=== PATIENT | female | born 1950 | race Caucasian/White ===

== ENCOUNTER 2016-09-17 18:41 | Emergency (ER) | payer MEDICARE, OTHER ==
[~2016-09-17 18:41] MED LIST: ASCO500C PO; CENTTAB16 PO; CYCL-36 PO; IBUP800T23 PO
[2016-09-17 18:49] VITALS: BP 143/67; PULSE 92; RESP 20; TEMP 98.5; O2SAT 97
[2016-09-17] MEDS ORDERED: TETANUS/DIPHTHERIA TOXOID ADULT 0.5 ML VIAL IM ONE (19:15)
[2016-09-17] MEDS ORDERED: LIDOCAINE HCL 1% PF 30 ML VIAL INFIL ONE (19:15)
--- NOTE | 2016-09-17 19:23 | PD ---
HPI Chief Complaint: Laceration/Skin Injury Time Seen by Provider: 19:10 Travel History International Travel<30 days: No Contact w/Intl Traveler<30days: No Traveled to known affect area: No History of Present Illness HPI 66-year-old female presents to the emergency room for evaluation of a laceration to the left thumb that occurred just prior to arrival. Patient accidentally cut herself with a recently sharpened knife in the fur cleaner. She states she could not get the bleeding to stop with a regular band-aid. She is also concerned about developing infection. Patient denies paresthesias or loss of range of motion. She is not on blood thinners. Unknown last tetanus. No history of diabetes. PFSH Past Medical History Diminished Hearing: No Reproductive: Yes (FIBROID TUMOR, BILATERAL BREAST BIOPSIES: NEGATIVE) Immunizations Current: Yes : 6 Para: 4 Miscarriage: 2 Past Surgical History Other Surgery: Yes (GROWTH REMOVED OFF NECK) Family History Family Hypercholesterolemia: Yes (FATHER) Social History Alcohol Use: Yes (RARELY) Tobacco Use: No (QUIT AGE 34) Substance Use: No Allergies-Medications (Allergen,Severity, Reaction): Coded Allergies: No Known Allergies (Unverified , 09/17/16) Reported Meds & Prescriptions Reported Meds & Active Scripts Active No Active Prescriptions or Reported Medications Review of Systems Except as stated in HPI: all other systems reviewed are Neg Physical Exam Narrative GENERAL: Well-nourished, well-developed female in no acute distress. Afebrile. Ambulatory. SKIN: Focused skin assessment warm/dry. There is a 2.5 cm well approximated laceration to the left proximal thumb on the dorsal side. Nonbleeding. HEAD: Normocephalic. EYES: No scleral icterus. No injection or drainage. NECK: Supple, trachea midline. No JVD or lymphadenopathy. CARDIOVASCULAR: Regular rate and rhythm without murmurs, gallops, or rubs. RESPIRATORY: Breath sounds equal bilaterally. No accessory muscle use. MUSCULOSKELETAL: No cyanosis, or edema. Full range of motion of the hand. Less than 2 second capillary refill distally. Data Data Last Documented VS Vital Signs Date Time Temp Pulse Resp B/P Pulse Ox O2 Delivery O2 Flow Rate FiO2 09/17/16 18:49 98.5 92 20 143/67 97 Orders Tetanus/Diphtheria Tox Adult (Tetanus/Di (09/17/16 19:15) Lidocaine Pf 1% Inj (Xylocaine-Mpf 1% In (09/17/16 19:15) MDM Medical Decision Making Medical Screen Exam Complete: Yes Emergency Medical Condition: Yes Medical Record Reviewed: Yes Differential Diagnosis Laceration, abrasion, contusion Narrative Course 66-year-old female presents to the emergency room for evaluation of a laceration to the left, dorsal thumb that occurred just prior to arrival. She accidentally cut herself on a sharpened steak knife. Left thumb is neurovascularly intact with less than 2 second capillary refill distally. Full range of motion. There is a 2 cm superficial laceration to the left thumb. Tetanus was updated. Laceration was thoroughly irrigated and then repaired, see procedure for details. Patient discharged with wound care instructions and told to follow up with a primary care physician or return for worsening symptoms. He is to plan. Procedures Procedure Narrative LACERATION LOCATION: Left dorsal, proximal thumb LENGTH: 2 cm NUMBER OF STITCHES/FLOYD: 5 simple interrupted REPAIR: The area of the laceration was prepped with Betadine and sterilely draped. The laceration was infiltrated with 1% lidocaine. The wound was copiously irrigated and explored without evidence of foreign body, tendon injury or neurovascular injury. The wound was closed using 5-0 Prolene. This was a single layer repair. A sterile dressing was applied. The patient was advised to keep the dressing clean and dry. Patient tolerated the procedure well. Diagnosis Primary Impression: Laceration of left thumb Qualified Code: S61.012A - Laceration of left thumb without foreign body without damage to nail, initial encounter Referrals: Primary Care Physician Patient Instructions: Finger Laceration (ED), General Instructions Additional Instructions: Keep clean and dry. Apply triple tabetic ointment daily. Sutures out in 10 days. Follow up with a primary care physician or return to the emergency room as needed. Med/Other Pt SpecificInfo: Prescription(s) given Scripts No Active Prescriptions or Reported Meds Disposition: 01 DISCHARGE HOME Condition: Stable Juanita Choi Sep 17, 2016 19:22
== END 2016-09-17 19:45 | disposition home or self-care (01) ==
LOC: PHEFT 18:41
DX: S61.012A Laceration without foreign body of left thumb without damage to nail, initial encounter (principal); W26.0XXA Contact with knife, initial encounter; Y93.G1 Activity, food preparation and clean up; Z23 Encounter for immunization; Z87.891 Personal history of nicotine dependence
CPT/HCPCS: 12001; 90471; 90714; 96372

== ENCOUNTER 2017-03-08 10:32 | Emergency (ER) | payer MEDICARE, OTHER ==
[~2017-03-08] VITALS: Ht 157.5 cm; Wt 66.0 kg
[2017-03-08 10:37] VITALS: BP 134/65; PULSE 102; RESP 17; TEMP 99.5; O2SAT 97
[2017-03-08] MEDS ORDERED: BENZ100 PO (11:16)
[2017-03-08] MEDS ORDERED: AZIT250T3 PO (11:16)
--- NOTE | 2017-03-08 11:17 | PD ---
HPI Chief Complaint: Cold / Flu Symptoms Time Seen by Provider: 10:50 Travel History International Travel<30 days: No Contact w/Intl Traveler<30days: No Traveled to known affect area: No History of Present Illness HPI 67 -year-old Female here with productive cough 6 days. she reports she had flulike symptoms prior to the cough which included fever, body ache, nasal congestion. She reports the symptoms resolved and she now has a cough. she denies chest pain, palpitation, shortness of breath. Severity is moderate. No aggravating or alleviating factors. PFSH Past Medical History Medical History: Denies Significant Hx Diminished Hearing: No Reproductive: Yes (FIBROID TUMOR, BILATERAL BREAST BIOPSIES: NEGATIVE) Immunizations Current: Yes ?: Not : 6 Para: 4 Miscarriage: 2 Past Surgical History Other Surgery: Yes (GROWTH REMOVED OFF NECK) Family History Family Hypercholesterolemia: Yes (FATHER) Social History Alcohol Use: Yes (RARELY) Tobacco Use: No (QUIT AGE 34) Substance Use: No Allergies-Medications (Allergen,Severity, Reaction): Coded Allergies: No Known Allergies (Unverified Adverse Reaction, Unknown, 03/08/17) Reported Meds & Prescriptions Reported Meds & Active Scripts Active No Active Prescriptions or Reported Medications Review of Systems Except as stated in HPI: all other systems reviewed are Neg General / Constitutional: Positive: Fever Eyes: No: Visual changes HENT: Positive: Congestion Cardiovascular: No: Chest Pain or Discomfort Respiratory: Positive: Cough Gastrointestinal: No: Abdominal Pain Genitourinary: No: Dysuria Physical Exam Narrative GENERAL: Alert well-appearing 67-year-old female. SKIN: Warm and dry. HEAD: Atraumatic. Normocephalic. EYES: Pupils equal and round. No scleral icterus. No injection or drainage. ENT: No nasal bleeding or discharge. Mucous membranes pink and moist. NECK: Trachea midline. No JVD. CARDIOVASCULAR: Regular rate and rhythm. RESPIRATORY: No accessory muscle use. Clear to auscultation. Breath sounds equal bilaterally. Harsh bronchial sounding cough. GASTROINTESTINAL: Abdomen soft, non-tender, nondistended. MUSCULOSKELETAL: Extremities without clubbing, cyanosis, or edema. No obvious deformities. Data Data Last Documented VS Vital Signs Date Time Temp Pulse Resp B/P (MAP) Pulse Ox O2 Delivery O2 Flow Rate FiO2 03/08/17 10:37 99.5 102 17 134/65 (88) 97 [facility] Medical Decision Making Medical Screen Exam Complete: Yes Emergency Medical Condition: Yes Differential Diagnosis Influenza, bronchitis, pneumonia Narrative Course 67 -year-old female here with productive cough times one week. She is nontoxic appearing. Her vital signs are stable. She'll be treated for bronchitis Diagnosis Primary Impression: Bronchitis Referrals: Primary Care Physician Scripts Benzonatate (Tessalon Perles) 100 Mg Cap 200 MG PO TID Y for COUGH, #14 CAP 0 Refills Prov: Eloisa Overton 03/08/17 Azithromycin (Azithromycin) 250 Mg Tab 250 MG PO DIRECTED for Infection, #6 TAB 0 Refills Take 2 tabs (500 mg) on day 1 then 1 tab daily x 4 days. Prov: Eloisa Overton 03/08/17 Disposition: 01 DISCHARGE HOME Condition: Stable Eloisa Overton Mar 08, 2017 11:17
== END 2017-03-08 11:33 | disposition home or self-care (01) ==
LOC: PHEFT 10:32
DX: J40 Bronchitis, not specified as acute or chronic (principal)
CPT/HCPCS: 99284